=== PATIENT | male | born 1965 | race Caucasian/White ===

== ENCOUNTER 2022-06-16 08:57 | Outpatient (CLI) | payer OTHER | END 2022-06-16 08:58 | disposition home or self-care (01) | LOC: LABBT 08:57 | PROVIDERS: ATTEND Neurological Surgery | DX: Z01.818 Encounter for other preprocedural examination (principal) | CPT/HCPCS: 93005; 93010 ==

== ENCOUNTER 2022-06-19 05:49 | Day surgery (SDC) | payer OTHER ==
[2022-06-17 14:17] VITALS: BMI 27.8
[2022-06-19] MEDS ORDERED: Thrombin 5000 UNITS/5 ML VIAL ONE (06:19)
[2022-06-19] MEDS ORDERED: EPINEPHrine 1 MG/ML AMP ONE (06:19)
[2022-06-19] MEDS ORDERED: Bupivacaine HCl 0.5%/Epinephrine 1:200,000/PF 30 ml Vial ONE (06:19)
[2022-06-19] MEDS ORDERED: CEFAZOLIN 2 GM VIAL ONE ×2 (06:31→09:46)
[2022-06-19] MEDS ORDERED: Sodium Chloride 0.9% 100 ML ONE ×2 (06:32→09:46)
[2022-06-19] MEDS ORDERED: HYDROmorphone 0.5 MG/0.5 ML SYRINGE ONE (06:58)
[2022-06-19] MEDS ORDERED: fentaNYL Citrate/PF 100 MCG/2 ML SYRINGE ONE (06:58)
[2022-06-19] MEDS ORDERED: Dexamethasone 20 MG/5 ML VIAL ONE (07:04)
[2022-06-19] MEDS ORDERED: Rocuronium Bromide 10 MG/ML (10ML VIAL) ONE (07:04)
[2022-06-19] MEDS ORDERED: PROPOFOL 200 MG/20 ML VIAL ONE (07:04)
[2022-06-19] MEDS ORDERED: ePHEDrine 50 MG/ML VIAL ONE (07:04)
[2022-06-19] MEDS ORDERED: Ondansetron PF 4 MG/2 ML Vial ONE (07:04)
[2022-06-19] MEDS ORDERED: NEOSTIGMINE 3 MG/3 ML SYR 3 MG/3 ML SYRINGE ONE (07:04)
[2022-06-19] MEDS ORDERED: Glycopyrrolate 0.2 MG/ML 5 ML SYRINGE ONE (07:04)
[2022-06-19] MEDS ORDERED: FENTANYL 50 MCG/ML VIAL 50 MCG/ML VIAL ONE ×2 (08:41→08:50)
[2022-06-19] MEDS ORDERED: Tamsulosin HCl 0.4 MG CAP ONE (08:50)
[2022-06-19] MEDS ORDERED: Acetaminophen/Codeine 30-300mg Tablet ONE (10:26)
== END 2022-06-19 13:05 | disposition home or self-care (01) ==
LOC: SDC 05:49
PROVIDERS: ATTEND Neurological Surgery
PROC: 0SB20ZZ Excision of Lumbar Vertebral Disc, Open Approach (ICD-10-PCS; principal; 2022-06-19)
PROC: 01NB0ZZ Release Lumbar Nerve, Open Approach (ICD-10-PCS; principal; 2022-06-19)
DX: M51.16 Intervertebral disc disorders with radiculopathy, lumbar region (principal); G89.4 Chronic pain syndrome; I10 Essential (primary) hypertension; M19.90 Unspecified osteoarthritis, unspecified site; G47.30 Sleep apnea, unspecified; F17.200 Nicotine dependence, unspecified, uncomplicated; Z79.1 Long term (current) use of non-steroidal anti-inflammatories (NSAID); Z79.899 Other long term (current) drug therapy; Z98.1 Arthrodesis status
CPT/HCPCS: J0171; J1100; J1170; J2405; J2704; J3010; J3490